=== PATIENT | female | born 1975 | race American Indian/Alaskan Native ===

== ENCOUNTER 2022-05-11 16:08 | Emergency (ER) | payer BC ==
[2022-05-11] MEDS ORDERED: SODIUM CHLORIDE 0.9% 1000 ML 1,000 ML IV ONE (18:09)
--- NOTE | 2022-05-11 18:19 | Emergency Department Report ---
ED Syncope HPI - General Chief Complaint: Syncope Stated Complaint: SYNCOPE EPISODE/VOMITING Time Seen by Provider: 05/11/22 17:45 - History of Present Illness Initial Comments: 46 yo female with h/o hpothyroid presents to the emergency department after she had 1 episode of syncope. Patient had driven home in a hot car, then when she got home she started feeling nauseous, lightheaded, started vomiting, and had a syncopal episode. Patient did not injure herself at that time. Patient did not have a headache, chest pain, or shortness of breath, and has not had the symptoms since the onset. Patient did have 1 recurrence of the nausea, and lightheadedness when EMS arrived at her home. They found her to be orthostatic, at the time, and brought the patient to the emergency department. Patient was given IV fluids, and now reports complete resolution of her symptoms, but is willing to allow us to evaluate her. Patient denies previous similar. Believes that her symptom onset occurred secondary to being "overheated". Zofran and IV fluids helped resolve her symptoms. - Related Data Allergies/Adverse Reactions: Allergies Penicillins Allergy (Verified 05/11/22 17:05) Unknown ED Review of Systems ROS: Stated complaint: SYNCOPE EPISODE/VOMITING Other details as noted in HPI Comment: All other systems reviewed and negative Constitutional: no symptoms reported. denies: chills, fever Eyes: denies: eye pain, eye discharge, vision change ENT: denies: ear pain, throat pain Respiratory: no symptoms reported. denies: cough, shortness of breath, wheezing Cardiovascular: denies: chest pain, palpitations Endocrine: no symptoms reported Gastrointestinal: nausea, vomiting. denies: abdominal pain, diarrhea Genitourinary: denies: urgency, dysuria, discharge Musculoskeletal: denies: back pain, joint swelling, arthralgia Skin: denies: rash, lesions Neurological: denies: headache, weakness, paresthesias Psychiatric: denies: anxiety, depression Hematological/Lymphatic: denies: easy bleeding, easy bruising ED Past Medical Hx - Past Medical History Additional medical history: hypothyroid ED Physical Exam - General Limitations: No Limitations General appearance: alert, in no apparent distress - Head Head exam: Present: atraumatic, normocephalic - Eye Eye exam: Present: normal appearance, PERRL, EOMI - ENT ENT exam: Present: mucous membranes moist - Neck Neck exam: Present: normal inspection, other (No carotid bruit). Absent: tenderness - Respiratory Respiratory exam: Present: normal lung sounds bilaterally. Absent: respiratory distress, wheezes - Cardiovascular Cardiovascular Exam: Present: regular rate, normal rhythm. Absent: systolic murmur, diastolic murmur, rubs, gallop - GI/Abdominal GI/Abdominal exam: Present: soft, normal bowel sounds. Absent: distended, tenderness - Extremities Exam Extremities exam: Present: normal inspection, full ROM. Absent: tenderness, calf tenderness - Back Exam Back exam: Present: normal inspection - Neurological Exam Neurological exam: Present: alert, oriented X3, CN II-XII intact, normal gait - Psychiatric Psychiatric exam: Present: normal affect, normal mood - Skin Skin exam: Present: warm, dry, intact, normal color. Absent: rash ED Course Vital Signs 05/11/22 05/11/22 05/11/22 17:00 20:31 22:00 Temperature 97.8 F Pulse Rate 66 63 Pulse Rate [ 75 Sitting] Pulse Rate [ 82 Standing] Respiratory 18 16 Rate Blood Pressure 106/78 [Left] Blood Pressure 96/61 [Sitting] Blood Pressure 114/74 [Standing] O2 Sat by Pulse 98 98 Oximetry - Reevaluation(s) Reevaluation #1: Patient remained stable throughout her visit to the emergency department, did not have repeat of dizziness, nausea, or syncope. Patient was not orthostatic. ED Medical Decision Making - Lab Data Result diagrams: 05/11/22 18:44 05/11/22 18:49 - EKG Data When compared to previous EKG there are: no significant change 05/11/22 21:32 Sinus rhythm rate 80 with normal axis. Probable left atrial enlargement. No ST-T wave changes. Critical care attestation.: If time is entered above; I have spent that time in minutes in the direct care of this critically ill patient, excluding procedure time. ED Disposition Clinical Impression: Syncope Qualifiers: Syncope type: unspecified Qualified Code(s): R55 - Syncope and collapse Disposition: 01 HOME / SELF CARE / HOMELESS Is pt being admited?: No Condition: Stable Instructions: Syncope, Syncope (ED) Additional Instructions: Please call your primary care physician on Friday and that here she noted that your calcium was low at 7.8. Referrals: YEMI GALVAN MD [Primary Care Provider] - 3-5 Days Time of Disposition: 21:32
[2022-05-11 19:17] LABS: Basophils % (Auto) 0.3 % (0.0-1.8); Eosinophils # (Auto) 0.1 K/mm3 (0.0-0.4); Eosinophils % (Auto) 0.8 % (0.0-4.3); Hematocrit 28.7 % (30.3-42.9); Hemoglobin 9.2 gm/dl (10.1-14.3); Lymphocytes # (Auto) 1.1 K/mm3 (1.2-5.4); Mean Corpuscular HGB Conc 32 % (30-34); Mean Corpuscular Volume 79 fl (79-97); Monocytes # (Auto) 0.3 K/mm3 (0.0-0.8); Monocytes % (Auto) 3.2 % (0.0-7.3); Platelet Count 176 K/mm3 (140-440); Red Blood Count 3.64 M/mm3 (3.65-5.03); Red Cell Distribution Width 16.4 % (13.2-15.2)
[2022-05-11 19:31] LABS: INR 0.97 (0.87-1.13)
[2022-05-11 19:32] LABS: Partial Thromboplastin Time 30.2 Sec. (24.2-36.6)
[2022-05-11 19:37] LABS: Alanine Aminotransferase 8 units/L (7-56); Albumin 3.5 g/dL (3.9-5); Blood Urea Nitrogen 6 mg/dL (7-17); Calcium 7.8 mg/dL (8.4-10.2); Hemolysis Index 9
[2022-05-11 19:44] LABS: BUN/Creatinine Ratio 10
[2022-05-11 20:32] VITALS: BP 96/61
--- NOTE | 2022-05-12 10:55 | Electrocardiograph Report ---
[facility] Test Date: 2022-05-11 Test Time: 20:16:48 Pat Name: COLBY ARMSTRONG Department: Room: Gender: F Program Admin: DREA : 1975 Requested By: RASHI DILL Order Number: [id number] Reading MD: Brad Manzano Measurements Intervals [place] Rate: 80 P: 63 CA: 163 QRS: 22 QRSD: 79 T: 38 QT: 391 QTc: 451 Interpretive Statements Sinus rhythm Probable left atrial enlargement No previous ECG available for comparison Electronically Signed On 05-12-2022 10:55:30 EDT by Brad Manzano
== END 2022-05-11 22:00 | disposition home or self-care (01) ==
LOC: ED 16:08
DX: R55 Syncope and collapse (principal)
CPT/HCPCS: 36415; 80053; 83735; 84443; 84484; 85025; 85610; 85730; 93005; 96360; 99284